=== PATIENT | female | born 1965 | race Caucasian/White ===

== ENCOUNTER → 2018-07-07 | Outpatient (CLI) | payer OTHER ==
[~2018-07-07] MED LIST: GLIM1TAB PO; IOHEXOL 240 MG/ML 50ML VIAL. ONE; IOHEXOL 240 MG/ML 50ML VIAL. PO ONE; IOHEXOL 300 MG/ML 75 ML VIAL. IV ONE; METF100010 PO; METH-38 PO; SERT100T8 PO; SITA50TA PO; TRAM50TA PO
[2018-07-07 10:32] LABS: CREATININE 0.8 mg/dL (0.6-1.0); GFR 74.7
--- NOTE | 2018-07-07 13:28 | RAD ---
CT ABD PELV W/ORAL IV CONTRAST Indication: ABDOMINAL PAIN, ANEMIA, N/V Exposure: One or more of the following individualized dose reduction techniques were utilized for this examination: 1. Automated exposure control 2. Adjustment of the mA and/or kV according to patient size 3. Use of iterative reconstruction technique. Technique: Intravenous contrast was given. Oral contrast was given. Lung bases are clear. Liver and spleen appear unremarkable. Pancreas unremarkable. No evidence of adrenal mass. Kidneys demonstrate symmetric enhancement without hydronephrosis or focal lesion. Gallbladder is surgically absent. Aorta is nonaneurysmal. Small aortocaval lymph nodes are identified, likely reactive. No pathologic-appearing lymph node enlargement is seen. Moderate retained stool in the colon. Wall thickening of the right colon may just be due to lack of distention. No definite acute colitis. The appendix is normal. No evidence of pelvic mass. Intrauterine device noted. Urinary bladder wall demonstrates thickening although not well distended. No evidence of ascites or pneumoperitoneum. Degenerative changes of the spine. Lumbar stenosis. No aggressive bone destruction. IMPRESSION: 1. Moderate retained stool in the colon. 2. Wall thickening of the right colon may just be due to incomplete distention, no definite acute colitis. 3. Mild urinary bladder wall thickening, although this is likely accentuated by incomplete distention. Correlate for symptoms of cystitis. 4. Lumbar spondylosis with stenosis. Electronically signed by: Frankie Bernard MD (07/07/2018 1:25 PM) [id number]
== END | disposition home or self-care (01) ==
LOC: CT 09:49
PROVIDERS: ATTEND Internal Medicine Gastroenterology
DX: R11.2 Nausea with vomiting, unspecified (principal); D64.9 Anemia, unspecified; M47.816 Spondylosis without myelopathy or radiculopathy, lumbar region; M48.061 Spinal stenosis, lumbar region without neurogenic claudication; Z90.49 Acquired absence of other specified parts of digestive tract
CPT/HCPCS: 36415; 74177; 82565; 84520; Q9966; Q9967

== ENCOUNTER 2020-05-04 17:31 | Emergency (ER) | payer BC, OTHER ==
[~2020-05-04] VITALS: Ht 167.6 cm; Wt 89.0 kg
[~2020-05-04 17:31] MED LIST changes: -IOHEXOL 240 MG/ML 50ML VIAL. ONE; -IOHEXOL 240 MG/ML 50ML VIAL. PO ONE; -IOHEXOL 300 MG/ML 75 ML VIAL. IV ONE; +SERT-269 PO; -SERT100T8 PO
[2020-05-04] MEDS ORDERED: DIPH,PERTUSS(ACELL),TET VAC/PF 0.5 ML SYRINGE. VAX IM ONE (18:00)
[2020-05-04] MEDS ORDERED: traMADol 50 MG TABLET PO ONE (18:00)
--- NOTE | 2020-05-04 18:17 | RAD ---
INDICATION: Reason: DOG BITE THUMB DISTAL PHALYNX / Spl. Instructions: / History: COMPARISON: None. IMPRESSION: Left hand: 3 views obtained. Comminuted fracture of the distal phalanx of the first digit with mild d isplacement and overlying soft tissue swelling. Electronically signed by: Shashi Slade MD (05/04/2020 6:15 PM) [id number]
[2020-05-04] MEDS ORDERED: [UNRECOGNIZED DRUG - OTHER] ONE (19:38)
[2020-05-04] MEDS ORDERED: BUPIVACAINE PF 0.75% 10 ML VIAL ONE (19:41)
[2020-05-04] MEDS ORDERED: BUPIVACAINE MPF 0.5% 30 ML VIAL. SQ ONE (19:45)
[2020-05-04] MEDS ORDERED: HYDROcodone/APAP 7.5/325MG 1 TAB TABLET PO ONE (19:45)
[2020-05-04] MEDS ORDERED: BACITRACIN ZINC TOPICAL OINT PACKET. TP ONE (20:45)
[2020-05-04] MEDS ORDERED: SMZ/TMP 800/160MG TABLET. PO ONE (21:15)
[2020-05-04] MEDS ORDERED: CEFEPIME HCL 2 GM VIAL IV ONE (21:23)
[2020-05-04] MEDS ORDERED: IV NORMAL SALINE 100ML 100 ML ONE (21:23)
[2020-05-04] MEDS: CEFEPIME HCL 2 GM in IV NORMAL SALINE 100ML 100 ML IV SCH ×2 (21:26→21:35)
[2020-05-04 21:30] VITALS: BP 140/84
[2020-05-04] MEDS ORDERED: SULF1TAB24 PO (21:44)
--- NOTE | 2020-05-04 21:45 | PHYS DOC ---
Past History Past Medical History: Diabetes (SANNA ALEJANDRA APRN) Past Surgical History: Cholecystectomy, Other Additional Past Surgical Histo: Hernia, Cornea tx, back (SANNA ALEJANDRA APRN) Alcohol Use: None (SANNA ALEJANDRA APRN) Adult General Chief Complaint Chief Complaint: THUMB HPI HPI Patient is a 55-year-old female presents emergency department complaining of a dog bite wound to her left thumb that happened this prior to arrival. 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 Patient states the dog's immunizations are up-to-date, denies any other physical injury or physical complaint. Patient states that dog bit through her thumbnail and it has been bleeding for the past 2 hours. Patient states her last tetanus immunization was longer than 5 years ago. (SANNA ALEJANDRA APRN) Review of Systems Review of Systems 14 body systems of review of systems have been reviewed. See HPI for pertinent positives and negative responses, otherwise all other systems are negative, nonpertinent or noncontributory. (SANNA ALEJANDRA APRN) Current Medications Current Medications Current Medications Medications (Trade) Dose Ordered Sig/Sterling Start Time Stop Time Status Last Admin Dose Admin Acetaminophen/ Hydrocodone Bitart (Lortab 7.5/325) 2 tab 1X ONCE 05/04/20 19:45 05/04/20 19:46 DC 05/04/20 19:54 2 TAB Bacitracin (Bacitracin Topical Pkt) 1 pkt 1X ONCE 05/04/20 20:45 05/04/20 20:52 DC 05/04/20 20:45 1 PKT Bupivacaine HCl (Sensorcaine Mpf 0.5%) 30 ml 1X ONCE 05/04/20 19:45 05/04/20 19:46 DC 05/04/20 19:45 30 ML Bupivacaine HCl (Sensorcaine Pf 0.75%) 10 ml STK-MED ONCE 05/04/20 19:41 05/04/20 19:42 DC Bupivacaine HCl/ Epinephrine Bitart (Sensorcain Epi 0.5%-1:[id number]) 30 ml STK-MED ONCE 05/04/20 19:38 05/04/20 19:39 DC Cefepime HCl 2 gm/ Sodium Chloride 100 ml @ 200 mls/hr Q8HRS 05/04/20 22:00 UNV Diphtheria/ Pertussis/Tetanus Vacc (ADACEL TDap SYRINGE) 0.5 ml ONCE ONCE 05/04/20 18:00 05/04/20 18:01 DC 05/04/20 18:03 0.5 ML Tramadol HCl (Ultram) 100 mg 1X ONCE 05/04/20 18:00 05/04/20 18:01 DC 05/04/20 18:02 100 MG Trimethoprim/ Sulfamethoxazole (Bactrim Ds) 1 tab 1X ONCE 05/04/20 21:15 05/04/20 21:16 DC (SANNA ALEJANDRA APRN) Allergies Allergies Allergies Coded Allergies Type Severity Reaction Last Updated Verified ampicillin Allergy Unknown 07/07/18 Yes latex Allergy Unknown 07/07/18 Yes (SANNA ALEJANDRA APRN) Physical Exam Physical Exam Constitutional: Well developed, well nourished, no acute distress, non-toxic appearance. [] HENT: Normocephalic, atraumatic, bilateral external ears normal, oropharynx moist, no oral exudates, nose normal. [] Eyes: PERRLA, EOMI, conjunctiva normal, no discharge. [] Neck: Normal range of motion, no tenderness, supple, no stridor. [] Cardiovascular:Heart rate regular rhythm, no murmur [] Lungs & Thorax: Bilateral breath sounds clear to auscultation [] Abdomen: Bowel sounds normal, soft, no tenderness, no masses, no pulsatile masses. [] Skin: Warm, dry, no erythema, no rash. [] Back: No tenderness, no CVA tenderness. [] Extremities: No tenderness, no cyanosis, no clubbing, ROM intact, no edema. Left thumb distal phalanx puncture wound through top of nail, no injury to thumb pad. Thumbnail not attached at the nailbed of medial two thirds, bleeding controlled at this time. Distal cap refill less than 2 seconds, full AROM/PROM of thumb at DIP joint. Vascular intact. Neurologic: Alert and oriented X 3, normal motor function, normal sensory function, no focal deficits noted. [] Psychologic: Affect normal, judgement normal, mood normal. [] (SANNA ALEJANDRA APRN) Current Patient Data Vital Signs Vital Signs Date Time Temp Pulse Resp B/P (MAP) Pulse Ox O2 Delivery O2 Flow Rate FiO2 05/04/20 20:00 90 20 151/94 (113) 99 Room Air 05/04/20 17:35 97.3 (SANNA ALEJANDRA APRN) EKG EKG [] (SANNA ALEJANDRA APRN) Radiology/Procedures Radiology/Procedures [] (SANNA ALEJANDRA APRN) Heart Score Risk Factors: Risk Factors: DM, Current or recent (<one month) smoker, HTN, HLP, family history of CAD, obesity. Risk Scores: Risk Factors: DM, Current or recent (<one month) smoker, HTN, HLP, family history of CAD, obesity. (SANNA ALEJANDRA APRN) Course & Med Decision Making Course & Med Decision Making Pertinent Labs and Imaging studies reviewed. (See chart for details) 55-year-old female, vital signs reviewed, presents emergency department for treatment of a dog bite wound to her left thumb. Physical examination concerning for possible distal left thumb phalanx fracture, x-ray was ordered, patient's tetanus status was brought up-to-date X-ray of left hand showed fracture to left thumb distal phalanx per house radiologist crepitation. Discussed findings with patient, discussed plan to digital block left thumb, explored for any foreign bodies and copious irrigation normal saline. Patient's left thumb digitally blocked with 10 cc 0.75% Sensorcaine, puncture wound/open fracture site explored there were no foreign bodies, scrubbed with chlorhexidine soap, irrigated with 500 cc high-pressure normal saline. Thmike bnail was repositioned into nailbed, was not sutured related to animal bite puncture wound and injury. Site dressed with Polysporin, nonadherent dressing, tube gauze, aluminum thumb splint in natural anatomical position. Patient tolerated well. Patient revealed she is currently taking cefdinir for a sinus infection prescribed by her doctor, she is on day 2 of a 10-day regimen. Patient will be started on Bactrim DS in the ER today, will be given Bactrim DS twice daily x10 days. Patient is to follow-up with hand specialist orthopedic surgeon. Patient gave verbal understanding of home care instructions, will call Wednesday morning for an appointment to see hand surgeon this week, will leave dressing in place until hand surgeon removes and examines left thumb, patient gave verbal understanding of antibiotic use, return to ER precautions or concerns, had no further questions or concerns was discharged home without incident. (SANNA ALEJANDRA APRN) Course & Med Decision Making Did not see or evaluate patient. Agree with CORE FILER's work-up and disposition per note. (IRENA CORREA MD) Dragon Disclaimer Dragon Disclaimer This electronic medical record was generated, in whole or in part, using a voice recognition dictation system. (SANNA ALEJANDRA APRN) Departure Departure: Impression: Primary Impression: Animal bite with open wound Additional Impressions: Fracture of thumb, left, open Need for DTaP vaccine Disposition: 01 DC HOME SELF CARE/HOMELESS Condition: GOOD Referrals: GENA SHELTON (PCP) Additional Instructions: Please take both the antibiotic your primary care physician prescribed and the new one I prescribed you today as directed until completed. Please call for an appointment with the orthopedic surgeon Dr. Shields this coming Wednesday to be seen this week. Let the office know you have a NON-DISPLACED OPEN FRACTURE OF THE LEFT THUMB STATUS POST DOG BITE PUNCTURE WOUND WITH NAIL BED INJURY and you need to be seen this week. Do not remove the dressing until the orthopedic surgeon has examined your thumb wound. Please return to the emergency department for worsening symptoms or other concerns. Carmen Shields MD Orthopaedic Surgery Address:[facility] [address] [place] [address] EMERGENCY DEPARTMENT GENERAL DISCHARGE INSTRUCTIONS Thank you for coming to [facility] (ED) today and trusting us with you care. We trust that you had a positivie experience in our Emergency Department. If you wish to speak to the department management, you may call the director at [phone]. YOUR FOLLOW UP INSTRUCTIONS ARE FOLLOWS: 1. Do you have a private Doctor? If you do not have a private doctor, please ask for a resource list of physicians or clinics that may be able to assist you with follow up care. 2. The Emergency Physician has interpreted your x-rays. The X-Ray specialist will also review them. If there is a change in the findings, you will be notified in 48 hours when at all possible. 3. A lab test or culture has been done, your results will be reviewed and you will be notified if you need a change in treatment. ADDITIONAL INSTRUCTIONS AND INFORMATION: 1. Your care today has been supervised by a physician who is specially trained in emergency care. Many problems require more than one evaluation for a complete diagnosis and treatment. We recommend that you schedule your follow up appointment as recommended to ensure complete treatment of you illness or injury. If you are unable to obtain follow up care and continue to have a problem, or if your condition worsens, we recommend that you return to the ED. 2. We are not able to safely determine your condition over the phone nor are we able to give sound medical advice over the phone. For these safety reasons, if you call for medical advice we will ask you to come to the ED for further evaluation. 3. If you have any questions regarding these discharge instructions please call the ED at [phone]. SAFETY INFORMATION: In the interest of safety, wellness, and injury prevention; we encourage you to wear your sealbelt, if you smoke; quite smoking, and we encourage family to use a protective helmet for bicycling and other sporting events that present an increased risk for head injury. IF YOUR SYMPTOMS WORSEN OR NEW SYMPTOMS DEVELOP, OR YOU HAVE CONCERNS ABOUT YOUR CONDITION; OR IF YOUR CONDITION WORSENS WHILE YOU ARE WAITING FOR YOUR FOLLOW UP APPOINTMENT; EITHER CONTACT YOUR PRIMARY CARE DOCTOR, THE PHYSICIAN WHOSE NAME AND NUMBER YOU WERE GIVEN, OR RETURN TO THE ED IMMEDIATELY. Scripts Sulfamethoxazole/Trimethoprim (BACTRIM DS TABLET) 1 Each Tablet 1 TAB PO BID for DOG BITE WOUND for 10 Days, #20 TAB 0 Refills Prov: SANNA ALEJANDRA APRN 05/04/20 Problem Qualifiers Additional Impressions: Fracture of thumb, left, open Encounter type: initial encounter Phalanx: distal Fracture alignment: nondisplaced Qualified Codes: S62.525B - Nondisplaced fracture of distal phalanx of left thumb, initial encounter for open fracture SANNA ALEJANDRA APRN May 04, 2020 21:45 IRENA CORREA MD May 04, 2020 23:36
== END 2020-05-04 21:35 | disposition home or self-care (01) ==
LOC: ER 17:31
DX: S62.522B Displaced fracture of distal phalanx of left thumb, initial encounter for open fracture (principal); E11.9 Type 2 diabetes mellitus without complications; Z88.1 Allergy status to other antibiotic agents; Z91.040 Latex allergy status; W54.0XXA Bitten by dog, initial encounter; Y93.89 Activity, other specified; Y92.89 Other specified places as the place of occurrence of the external cause; Y99.0 Civilian activity done for income or pay
CPT/HCPCS: 29125; 73130; 90471; 90715; 99284; J3490

== ENCOUNTER → 2020-07-05 | Outpatient (CLI) | payer BC ==
[~2020-07-05] MED LIST changes: +SULF1TAB24 PO
--- NOTE | 2020-07-05 12:28 | RAD ---
EXAM: Maxillofacial bone CT without contrast. HISTORY: Headache. TECHNIQUE: Computed tomographic images of the maxillofacial bones were obtained without contrast. *One or more of the following individualized dose reduction techniques were utilized for this examina tion: 1. Automated exposure control. 2. Adjustment of the mA and/or kV according to patient size. 3. Use of iterative reconstruction technique. COMPARISON: None. FINDINGS: There is a tiny inferior left maxillary sinus mucous retention cyst. There is minimal maxil eduardo sinus mucosal thickening. The ostiomeatal units are patent. There is minimal leftward nasal sept al deviation. There is no sinus air-fluid level or sinus opacification to suggest acute sinusitis. Th ere is mild joint space narrowing involving the temporomandibular joints. The mastoid air cells are c lear. The orbits are unremarkable. The visualized portions of the brain demonstrate no acute finding. There are degenerative changes involving the cervical spine. No severe stenosis is seen at the visua lized cervical levels. There is a calcification within the left thyroid lobe. There is no lymphadenop athy. IMPRESSION: 1. No evidence of significant sinusitis. There is a tiny left maxillary sinus mucous retention cyst a nd there is minimal maxillary sinus mucosal thickening. 2. Minimal nasal septal deviation. Electronically signed by: Paola Corbin MD (07/05/2020 12:26 PM) [id number]
== END ==
LOC: CT 11:11
PROVIDERS: ATTEND Otolaryngology
DX: J34.2 Deviated nasal septum (principal); J34.89 Other specified disorders of nose and nasal sinuses
CPT/HCPCS: 70486

== ENCOUNTER → 2020-11-29 | Outpatient (CLI) | payer BC ==
--- NOTE | 2020-11-29 15:29 | RAD ---
EXAM: Thyroid sonogram HISTORY: Thyroid calcifications on CT COMPARISON: CT dated 07/05/2020. TECHNIQUE: Sonographic imaging of the thyroid was performed FINDINGS: The right thyroid lobe measures 4.1 x 1.4 x 1.2 cm. The left thyroid lobe measures 4.7 x 1. 5 x 1.3 cm. The isthmus measures 2 mm. The thyroid parenchyma is diffusely heterogeneous. There is a 6 mm colloid cyst within the mid right thyroid lobe. There is a heterogeneous suspected solid hypoech oic nodule with small cystic component or spongiform nodule within the superior left thyroid lobe nuno suring 1.5 x 1.2 x 1.7 cm. This demonstrates internal echogenic foci likely due to calcification. The re are a few additional tiny bilateral colloid cysts. IMPRESSION: 1. Heterogeneous solid nodule with small cystic components or spongiform nodule with possible microca lcification within the left thyroid lobe measuring 1.7 cm in maximum dimension. TI-RADS Category 4: S onographic guided fine-needle aspiration is recommended. 2. Multiple tiny benign nodules and colloid cysts. The largest cyst measures 6 mm on the right. These are superimposed on diffusely heterogeneous thyroid parenchyma, a finding which can be seen as a seq uela of thyroiditis. Electronically signed by: Paola Corbin MD (11/29/2020 3:26 PM) [id number]
== END ==
LOC: US 09:48
PROVIDERS: ATTEND Registered Nurse
DX: E04.2 Nontoxic multinodular goiter (principal)
CPT/HCPCS: 76536

== ENCOUNTER → 2020-12-17 | Outpatient (CLI) | payer BC ==
[2020-12-18 03:11] LABS: ESTRADIOL LEVEL 18.8 pg/mL (.); FSH 60.7 mIU/mL (.); LUTEINIZING HORMONE 17.6 mIU/mL (.)
== END ==
LOC: LAB 14:33
PROVIDERS: ATTEND Obstetrics & Gynecology
DX: Z01.419 Encounter for gynecological examination (general) (routine) without abnormal findings (principal)
CPT/HCPCS: 36415; 82670; 83001; 83002

== ENCOUNTER → 2021-01-22 | Outpatient (CLI) | payer BC ==
--- NOTE | 2021-01-22 11:40 | RAD ---
INDICATION : Routine Screening. COMPARISON: February 2015 TECHNIQUE: Standard mammogram screening views of the bilateral breasts were obtained. CAD was utilize d. FINDINGS: The breasts are fatty density. There is repeat demonstration of scattered benign-appearing calcifica tions. Within the right upper central and outer breast seen on the CC and MLO view there is asymmetri c tissue identified which appears increased in conspicuity compared to prior. No definite new suspici ous left breast mass. IMPRESSION: BI-RADS Category 0: Incomplete. Further imaging evaluation is warranted. There is asymmetric breast t issue seen in the right upper, central and lateral breast both on the CC and MLO view which appears m ore prominent than prior. This could be secondary to some increased glandular tissue within the regio n but recommend that the patient return for diagnostic three-dimensional mammogram to further evaluat e. If this persists on 3-dimensional mammography ultrasound would be needed. No new suspicious left b reast mass. The patient was placed into the recall system with a suggested recall date for follow up imaging. Mammography is the most sensitive method for finding small breast cancers, but it does not detect the m all and is not a substitute for careful clinical examination. A negative mammogram does not negate a clinically suspicious finding and should not result in delay in biopsying a clinically suspicious abnormality. Electronically signed by: Shashi Slade MD (01/22/2021 11:37 AM) [id number]
== END ==
LOC: MAMMO 08:48
PROVIDERS: ATTEND Obstetrics & Gynecology
DX: Z12.31 Encounter for screening mammogram for malignant neoplasm of breast (principal)
CPT/HCPCS: 77067

== ENCOUNTER → 2021-01-31 | Outpatient (CLI) | payer BC | LOC: LAB 08:28 | PROVIDERS: ATTEND Nurse Practitioner | DX: G89.29 Other chronic pain (principal); R11.2 Nausea with vomiting, unspecified; R19.7 Diarrhea, unspecified; R10.9 Unspecified abdominal pain | CPT/HCPCS: 36415; 82710; 87493 ==

== ENCOUNTER → 2021-02-13 | Outpatient (CLI) | payer BC ==
--- NOTE | 2021-02-13 17:49 | RAD ---
CLINICAL INDICATION: RAJESH GALVAN, who is 55 years of age, presents for further evaluation of a finding noted on her most recent screening mammographic examination. On that examination an asymmetry was reported within the right COMPARISON: Prior mammographic imaging 01/22/2021 TECHNIQUE: Diagnostic views of the right breast were obtained, utilizing digital technique. BREAST COMPOSITION: There are scattered fibroglandular densities. MAMMOGRAM FINDINGS: The right breast asymmetric breast tissue is nearly effaced on the spot compression images. IMPRESSION: 1. Right breast probably benign asymmetry for which follow up is recommended. RECOMMENDATION: In the absence of new clinical symptoms or change in physical exam, short term follow up diagnostic e xamination is recommended in 6 months to assess for interval stability. BIRADS 3: PROBABLY BENIGN Electronically signed by: James Block MD (02/13/2021 5:47 PM) [id number]
== END ==
LOC: MAMMO 14:15
PROVIDERS: ATTEND Obstetrics & Gynecology
DX: R92.2 Inconclusive mammogram (principal)
CPT/HCPCS: 77065; G0279; 77061